=== PATIENT | female | born 1945 | race Caucasian/White ===

== ENCOUNTER 2020-03-05 06:43 | Emergency (ER) | payer MEDICARE, SELFPAY ==
[2020-03-05] VITALS (43 sets, daily range): BP systolic 76–127; BP diastolic 40–64; PULSE 56–98; RESP 11–19; TEMP 36.6; O2SAT 89–100
--- NOTE | 2020-03-05 07:06 | DI.CT_ITS ---
EXAM: CT HEAD CERV SPINE FACIAL WO CLINICAL HISTORY: fall, syncope. TECHNIQUE: Imaging Protocol: Axial computed tomography images with coronal and sagittal reformatted images were created and reviewed COMPARISON: No exams were available for comparison FINDINGS: CT Head: Ventricles and Extra axial spaces: Normal in size and morphology for the patient's age. Hemorrhage: None. Cerebral parenchyma: Normal. Midline shift: None. Brainstem/Cerebellum: Normal. Calvarium: Normal. Visualized Paranasal sinuses/Mastoids: Small mucous retention cyst Left maxillary sinus. Soft Tissues: Unremarkable. Mildly displaced nasal fractures. CT Cervical Spine: Bones: No acute fracture or subluxation. Degenerative disc changes and facet degenerative changes. N ormal alignment. Soft Tissues: Unremarkable. Lung Apices: Clear. CT Maxillofacial: Orbits: Intact. Mandible: Intact. Nasal bones: Mildly displaced nasal fractures. Sinuses: No fracture. Small mucous retention cyst Left maxillary sinus. IMPRESSION: 1. No acute intracranial process. 2. No acute fracture or subluxation in the cervical spine. 3. Mildly displaced nasal fractures. RADIATION DOSE DELIVERED: 1,905.53mGy.cm Total DLP DATA REPOSITORY: All CT scans at this facility are submitted to the National Radiology Data Registry (NRDR) Dose Index Registry (DIR) with the [employer] (A[employer]). RADIATION OPTIMIZATION: All CT scans at this facility use at least one of these dose optimization te chniques: automated exposure control; mA and/or kV adjustment per patient size (includes targeted exa ms where dose is matched to clinical indication); or iterative reconstruction.
[2020-03-05] MEDS: Normal Saline 1,000 ML 1000 ML IV (07:20)
[2020-03-05 07:22] LABS: Abs Immature Grans 0.01 k/cumm (0.0-0.09); Absolute Basophil Count 0.02 k/cumm (0.0-0.2); Absolute Eosinophil Count 0.05 k/cumm (0.0-0.7); Absolute Lymphocyte Count 1.03 k/cumm (1.2-3.4); Absolute Monocyte Count 0.73 k/cumm (0.11-0.7); Absolute Neutrophil Count 8.15 k/cumm (1.2-6.7); Basophils % 0.2; Eosinophils % 0.5; HCT 44.4 % (36.0-46.0); HGB 15.2 g/dL (12.0-15.5); Immature Grans % 0.1 %; Lymphocytes % 10.3; Mean Corp. HGB Concentration 34.2 g/dL (32.0-36.0); Mean Corpuscular Hemoglobin 31.1 pg (27.0-33.0); Mean Platelet Volume 9.2 fL (8.0-11.0); Monocytes % 7.3; Neutrophils % 81.6; Platelet Count 270 x1000/uL (130-400); RBC 4.88 m/cumm (4.00-5.20); RBC Distribution Width 12.8 % (11.7-14.6); White Blood Cell Count 9.99 k/cumm (4.4-10.8)
--- NOTE | 2020-03-05 07:23 | ED.GENADUL_ITS ---
Discharge Plan Disposition Patient Disposition: HOME Condition: Stable Discharge Details Chief Complaint: Dizzy/Sync Clinical Impression: Syncope and collapse, Nasal bone fracture, Contusion of hand Primary Care Provider: Irene Banegas ED Provider: Suze Dunn Home Meds and New Rx's Prescriptions: No Action No Known Home Meds RF: 0 Discharge Instructions Instructions: Nasal Fracture (ED), Syncope (ED), Head Injury (ED), Contusion in Adults (ED) Additional Instructions: Drink plenty of fluids and get plenty of rest. Alternate tylenol and motrin as needed and directed for pain. Apply ice to the affected area several times daily for 20 minutes at a time. You will receive a call from care management regarding a follow-up appointment with the ear nose and throat doctor. Call your primary care doctor on Saturday to schedule a follow-up appointment for reevaluation and for referral for outpatient cardiac exercise physiologist to rule out a possible abnormal heart rhythm. Return immediately to the emergency department with any worsening or new concerning symptoms. Referrals: Rush Freed MD [ [facility] ST[facility]FF PHYSICIAN] - Discharge Data Discharge Date/Time-TO BE ENTERED AT DEPARTURE: 03/05/20 13:20 Discharge Physician: Suze Dunn Medical Decision Making <Nathan Monte DO - Last Filed: 03/05/20 07:34> 74-year-old female with no significant past medical history who recently just moved back here from the [facility] for evaluation of syncope. Patient states that since she recently moved she has not been eating her normal healthy non-GMO\, organic foods. She states that these less healthy foods that she has been eating over the last day or so is made her feel very poorly. She has felt nauseous, but has had no vomiting or diarrhea. She states that she often gets extremely lightheaded whenever she gets nauseous, and early this morning when she awoke she felt nauseous, got up to go to the bathroom and passed out. She hit her nose and head. She does not recall the event. Currently she does admit to some mild soreness in her upper extremities but she denies any significant pain. She admits to pain in her nose, but denies any significant head or neck pain. She denies any vision changes, numbness but does describe some tingling in her arms bilaterally. She denies any history of cardiac disease or dysrhythmia. She denies any blood thinner use. She does often take some natural supplements, but she denies any medications at this time. No other complaints at this time. Physical exam demonstrates notable bruising over the nose, no nasal septal hematoma. Neurologic exam benign. Although the patient describes some soreness in the arms and anterior chest there is no significant reproducible tenderness. Patient would like to hold off on any x-rays and states that she does not feel anything is broken there. However because of her syncope, as well as certain notably bruised nose, I do feel that CT head neck and face is indicated. We will get these, perform basic cardiology work-up gently rehydrate, monitor closely and reassess. Patient will be signed out to my colleague Dr. Suze Dunn for reassessment, and reevaluation after labs and imaging have returned. EKG 6: 51 Rate 83, intervals normal, sinus rhythm, no significant ST elevations or depressions, no evidence of STEMI. <Suze Dunn, - Last Filed: 03/06/20 09:10> 0800 --please see Dr. Monte's note for initial presentation, exam and plan. Case endorsed to follow-up on CT imaging and final disposition. CT notes minimally displaced nasal bone fracture but no other acute findings. Patient reassessed -she is complaining of continued hand pain. She has pain with movement of her hands and with even light touch. There is no evidence of trauma, bony deformity, erythema, ecchymosis. She states she feels she fell onto both of her hands when she fell this morning. I do not see an indication for x-rays at this time. We will give a dose of Toradol. She is also complaining of some nausea. Will give a dose of Pepcid and Zofran. Will obtain a second troponin and EKG as well as chest x-ray. Will attempt p.o. challenge. Repeat EKG rate of 61, sinus no acute ischemic change. Repeat troponin negative. Chest x-ray negative. 1045 -- pt reassessed - she is still c/o b/l hand pain, no relief with toradol. DATA SUPPORT ANALYST states she was a little bit wobbly walking back from the bathroom. Will give a tray of food, obtain hand xrays, dose of morphine and reassess. Patient states she would prefer to go home if possible. 1230 -- pt reassessed - she refused morphine. Bilateral hand x-rays noted questionable distal radius fracture but this was ruled out on R wrist xray. Patient had negative bilateral snuffbox tenderness. She was requesting to go home. She was able to eat and drink. She was able to ambulate without dizziness. Advised to follow up with the primary care doctor for re-evaluation. Usual and customary return precautions given prior to discharge. Medical Records Medical records reviewed: Yes I reviewed the patient's medical records. Imaging Data Radiologic Study: Radiologist's impression: CT Head Without Contrast Exam date and time: 03/05/2020 7:15 AM Age: 74 years old Clinical indication: Injury or trauma; Fall; Initial encounter; Blunt trauma (contusions or hematomas); Nose TECHNIQUE: Imaging protocol: Computed tomography of the head without contrast. COMPARISON: No relevant prior studies available. FINDINGS: Brain: No hemorrhage. There is mild diffuse heterogeneity of the white matter attenuation, consistent with chronic white matter ischemic changes. No mass effect. Basal ganglia cacifications. There is mild generalized brain parenchymal volume loss. Ventricles: No ventriculomegaly. Bones/joints: Minimally displaced nasal bone fracture. No calvarial fracture. Sinuses: Left maxillary mucous retention cyst versus polyp. Mastoid air cells: Visualized mastoid air cells are well aerated. Vasculature: Atherosclerotic calcifications of the intracranial arteries. Soft tissues: Unremarkable. IMPRESSION: 1. No acute intracranial findings. 2. Minimally displaced nasal bone fracture. 3. Left maxillary mucous retention cyst versus polyp. 4. Chronic and senescent changes as above. CT Maxillofacial Without Contrast Exam date and time: 03/05/2020 7:15 AM Age: 74 years old Clinical indication: Injury or trauma; Fall; Initial encounter; Blunt trauma (contusions or hematomas); Nose TECHNIQUE: Imaging protocol: Computed tomography images of the face without contrast. COMPARISON: No relevant prior studies available. FINDINGS: Orbits: Orbits are normal. Globes are unremarkable. Bones/joints: Minimally displaced nasal bone fracture. Sinuses: Left mucous retention cyst versus polyp. No air-fluid levels. Dental: Metallic dental artifact. Soft tissues: Unremarkable. IMPRESSION: Minimally displaced nasal bone fracture. CT Cervical Spine Without Contrast Exam date and time: 03/05/2020 7:15 AM Age: 74 years old Clinical indication: Injury or trauma; Fall; Initial encounter; Blunt trauma (contusions or hematomas); Nose TECHNIQUE: Imaging protocol: Computed tomography images of the cervical spine without contrast. COMPARISON: No relevant prior studies available. FINDINGS: Vertebrae: No acute fracture. Normal alignment. Discs/Spinal canal/Neural foramina: Multilevel spondylosis. Most pronounced at C3-C4, C4-C5 and C6-C7 with mild bilateral neural foraminal narrowing and mild spinal canal narrowing. Soft tissues: Unremarkable. Lungs: Pleuroparenchymal scarring of the lung apices. IMPRESSION: 1. No acute findings. 2. Mild to moderate spondylosis. XR Left Hand Exam date and time: 03/05/2020 11:13 AM Age: 74 years old Clinical indication: Other: S/P fall, R/O acute disease TECHNIQUE: Imaging protocol: XR Left hand. Views: 3 or more views. COMPARISON: No relevant prior studies available. FINDINGS: Bones/joints: There is no evidence of acute fracture. There is no evidence of joint malalignment or dislocation. Osteopenia. Degenerative changes of the distal interphalangeal joints. Soft tissues: Normal. IMPRESSION: No acute osseous findings. Osteopenia. Osteoarthritis. XR Right Hand Exam date and time: 03/05/2020 11:10 AM Age: 74 years old Clinical indication: Pain; Hand; Bilateral TECHNIQUE: Imaging protocol: XR Right hand. Views: 3 or more views. COMPARISON: No relevant prior studies available. FINDINGS: Bones/joints: Osteopenia. Mild degenerative changes of the interphalangeal joints. There is slight dorsal angulation of the radius and volar cortical irregularity (step-off) which could represent a minimally displaced distal radius fracture. Sequelae of prior trauma at the ulnar styloid. Soft tissues: A Band-Aid appears to be over the distal aspect of the 2nd digit. Possible small amount of soft tissue thickening at the distal 2nd digit. IMPRESSION: There is slight dorsal angulation of the radius with volar cortical irregularity on lateral radiograph which could represent a minimally displaced distal radius fracture. Recommend correlation to history and point tenderness at this area. Recommend dedicated wrist radiographs. Osteopenia. XR Right Wrist Exam date and time: 03/05/2020 12:05 PM Age: 74 years old Clinical indication: Pain; Wrist; Right; Additional info: Follow up imaging for wrist per radiologist, FX ulna 2 years ago TECHNIQUE: Imaging protocol: XR Right wrist. Views: 3 or more views. COMPARISON: CR XR HAND RT COMPLETE 03/05/2020 11:10 AM FINDINGS: Bones/joints: Osteopenia. No displaced fracture lucency. Smooth cortical regularity and dorsal angulation of the distal radius likely represents sequelae of prior/old trauma. Sequelae of prior trauma the ulnar styloid. Soft tissues: Normal. IMPRESSION: 1. No displaced fracture lucency. If continued point tenderness, recommend conservative management. 2. Likely sequelae of prior trauma at the distal radius and ulnar styloid. Lab Data Lab results reviewed: Yes I reviewed the patient's lab results. Labs: Laboratory Tests Range/Units 03/05/20 03/05/20 03/05/20 07:16 07:16 07:16 WBC (4.4-10.8) k/cumm 9.99 RBC (4.00-5.20) m/cumm 4.88 Hgb (12.0-15.5) g/dL 15.2 Hct (36.0-46.0) % 44.4 MCV (80-95) fL 91.0 MCH (27.0-33.0) pg 31.1 MCHC (32.0-36.0) g/dL 34.2 RDW (11.7-14.6) % 12.8 Plt Count (130-400) x1000/uL 270 MPV (8.0-11.0) fL 9.2 Immature Gran % % 0.1 Neutrophils % 81.6 Lymphocytes % 10.3 Monocytes % 7.3 Eosinophils % 0.5 Basophils % 0.2 Absolute Neutrophils (1.2-6.7) k/cumm 8.15 H Absolute Lymphocytes (1.2-3.4) k/cumm 1.03 L Absolute Monocytes (0.11-0.7) k/cumm 0.73 H Absolute Eosinophils (0.0-0.7) k/cumm 0.05 Absolute Basophils (0.0-0.2) k/cumm 0.02 PT (9.3-11.0) sec 9.9 INR (0.9-1.1) 1.0 APTT (21.0-31.4) sec 22.8 Sodium (136-145) mmol/L 138 Potassium (3.5-5.1) mmol/L 3.7 Chloride (98-107) mmol/L 102 Carbon Dioxide (21.0-32.0) mmol/L 28.6 Anion Gap (3-11) mmol/L 7.4 BUN (7-18) mg/dL 22 H Creatinine (0.55-1.02) mg/dL 0.73 Estimated GFR/1.73 m2 (mL/min/1.73m2) >= 60.00 Glucose (74-106) mg/dL 119 H Calcium (8.5-10.1) mg/dL 9.1 Total Bilirubin (0.2-1.0) mg/dL 0.3 AST (15-37) U/L 24 ALT (14-59) U/L 27 Alkaline Phosphatase (46-116) U/L 73 Troponin I (<0.06) ng/mL < 0.05 Total Protein (6.4-8.2) g/dL 7.1 Albumin (3.4-5.0) g/dL 3.9 Lipase (73-393) U/L 112 TSH (0.36-3.74) uIU/mL 3.44 Urine Color (Yellow) Urine Clarity (Clear) Urine pH (5-8) Ur Specific [place] (1.005-1.025) Urine Protein (Negative) mg/dL Urine Ketones (Negative) mg/dL Urine Blood (Negative) Urine Nitrite (Negative) Urine Bilirubin (Negative) Urine Urobilinogen (Up TO 0.2) EU/dL Ur Leukocyte Esterase (Negative) Urine Glucose (Negative) mg/dL Range/Units 03/05/20 03/05/20 08:00 09:15 WBC (4.4-10.8) k/cumm RBC (4.00-5.20) m/cumm Hgb (12.0-15.5) g/dL Hct (36.0-46.0) % MCV (80-95) fL MCH (27.0-33.0) pg MCHC (32.0-36.0) g/dL RDW (11.7-14.6) % Plt Count (130-400) x1000/uL MPV (8.0-11.0) fL Immature Gran % % Neutrophils % Lymphocytes % Monocytes % Eosinophils % Basophils % Absolute Neutrophils (1.2-6.7) k/cumm Absolute Lymphocytes (1.2-3.4) k/cumm Absolute Monocytes (0.11-0.7) k/cumm Absolute Eosinophils (0.0-0.7) k/cumm Absolute Basophils (0.0-0.2) k/cumm PT (9.3-11.0) sec INR (0.9-1.1) APTT (21.0-31.4) sec Sodium (136-145) mmol/L Potassium (3.5-5.1) mmol/L Chloride (98-107) mmol/L Carbon Dioxide (21.0-32.0) mmol/L Anion Gap (3-11) mmol/L BUN (7-18) mg/dL Creatinine (0.55-1.02) mg/dL Estimated GFR/1.73 m2 (mL/min/1.73m2) Glucose (74-106) mg/dL Calcium (8.5-10.1) mg/dL Total Bilirubin (0.2-1.0) mg/dL AST (15-37) U/L ALT (14-59) U/L Alkaline Phosphatase (46-116) U/L Troponin I (<0.06) ng/mL < 0.05 Total Protein (6.4-8.2) g/dL Albumin (3.4-5.0) g/dL Lipase (73-393) U/L TSH (0.36-3.74) uIU/mL Urine Color (Yellow) Yellow Urine Clarity (Clear) Clear Urine pH (5-8) 7.0 Ur Specific [place] (1.005-1.025) 1.020 Urine Protein (Negative) mg/dL Negative Urine Ketones (Negative) mg/dL Trace H Urine Blood (Negative) Negative Urine Nitrite (Negative) Negative Urine Bilirubin (Negative) Negative Urine Urobilinogen (Up TO 0.2) EU/dL 0.2 Ur Leukocyte Esterase (Negative) Negative Urine Glucose (Negative) mg/dL Negative ECG Data Attestation: I personally reviewed and interpreted this ECG (s) as follows: Interpretation: #1 --Rate of 83, atrial, P waves inverted in most leads. No acute ST elevation or depression. NJ 150. QTc 414. QRS 84. #2 --rate of 61, sinus, no acute ST elevation or depression. NJ 160. QTc 399. QRS 82. HPI <Nathan Monte DO - Last Filed: 03/05/20 07:34> General Date/Time Provider Initiated Documentation: 03/05/20 07:04 . HPI Narrative: 74-year-old female with no significant past medical history who recently just moved back here from the [facility] for evaluation of syncope. Patient states that since she recently moved she has not been eating her normal healthy non-GMO\, organic foods. She states that these less healthy foods that she has been eating over the last day or so is made her feel very poorly. She has felt nauseous, but has had no vomiting or diarrhea. She states that she often gets extremely lightheaded whenever she gets nauseous, and early this morning when she awoke she felt nauseous, got up to go to the bathroom and passed out. She hit her nose and head. She does not recall the event. Currently she does admit to some mild soreness in her upper extremities but she denies any significant pain. She admits to pain in her nose, but denies any significant head or neck pain. She denies any vision changes, numbness but does describe some tingling in her arms bilaterally. She denies any history of cardiac disease or dysrhythmia. She denies any blood thinner use. She does often take some natural supplements, but she denies any medications at this time. No other complaints at this time. Related Data Home Medications Medication Instructions Recorded Confirmed Unknown [No Known Home Meds] 03/05/20 03/05/20 General Stated Complaint: Dizzy/Sync HARDY: 2 Review of Systems <Nathan Monte DO - Last Filed: 03/05/20 07:34> All systems reviewed & are unremarkable except as noted in HPI and below PFSH <Nathan Motne DO - Last Filed: 03/05/20 07:34> Social History Smoking/Tobacco Use Status: Never Alcohol Intake: never Substance use type: does not use Do you feel safe at home: Yes Do you feel safe in your relationship?: Yes Exam <Nathan Monte DO - Last Filed: 03/05/20 07:34> Narrative Exam Narrative: 1.Const: Well-nourished, Well-developed, appearing stated age 2.Eyes: PERRL, no conjunctival injection, and symmetrical lids. 3.ENT: Notable bruising over nose. Moist MM. Neck: Symmetric, trachea midline, No thyromegaly. There is no evidence of raccoon eyes, krishna sign, CSF rhinorrhea, mastoid tenderness, cranial crepitus, hemotympanum, exophthalmos, or hyphema. Patient demonstrates intact dentition with no signs of tooth avulsion or fracture, no signs of jaw deformity, no evidence of a LeFort's fracture, with an intact palate, nose and orbital region. There is no evidence of a nasal septal hematoma. No proptosis. Jaw closes symmetrically. Airway is clear. 4.CVS: Regular rate and rhythm, Normal s1 and s2. No murmurs, carotid bruits, rubs, or gallops. Radial pulses 2+ bilaterally and symmetric. Dorsalis pedis pulses 2+ bilaterally and symmetric. 2+ capillary refill. No evidence of distant heart sounds. No extremity edema. No evidence of gross hemorrhage. 5.RESP: Airway clear, no obstructions. No abrasions or ecchymosis. Chest movement symmetric with respirations. No chest wall tenderness. Trachea midline. No crepitus. No step offs. No paradoxical movements. Lungs are clear to auscultation bilaterally. No rales, rhonchi, wheezing or stridor. Breath sound symmetric. No Sucking chest wounds. No clinical evidence of significant chest trauma. 6.GI: Soft, nondistended, nontender. Bowel tones normoactive. No masses or organomegaly. Note no pain at McBurney's point, negative Pan sign. No ecchymosis or abrasions. No periumbilical ecchymosis or seatbelt sign. No flank or CVA tenderness. No clinical signs of significant trauma. 7.MSK: No gross deformities or discolorations or lesions. Tolerates full range of motion of extremities without tenderness. All compartments of upper and lower extremities are soft with no tenderness. Vascular exam demonstrates brisk capillary refill and intact pulses in all extremities. Pelvic exam demonstrates a stable pelvis, nontender to lateral compression and palpation of symphysis pubis. No clinical evidence of significant musculoskeletal trauma. No midline tenderness to palpation over the CTLS spine. Normal ROM in flexion, extension, side bend, and rotation. Patient has +5 out of 5 strength in the lower extremities in dorsiflexion and plantarflexion, knee flexion and extension, hip flexion and extension. Normal strength for dorsiflexion and plantar flexion of the great toe bilaterally. There is +2 over 2 dorsalis pedis pulses bilater ally. There is normal sensation to the skin with light touch at the foot, knee, and hip. Normal saddle sensation. Good sensation over the deep sural nerve area bilaterally. Rectal exam deferred. Reflexes are +2 over 4 in the patellar reflex bilaterally. +5 out of 5 strength in the medial, ulnar, radial nerve distribution bilaterally in the hands as well as intact light touch sensation to these dermatomes on the hands 8.Skin: Warm, Dry. No rashes or lesions. 9.Neuro: All 6 cardinal planes of vision are fully intact. No evidence of rotatory or vertical nystagmus. The patient demonstrated a normal [id number], good dexterity. There was no evidence of dysdiadochokinesia. Patient was able to ambulate without difficulty. There was no wide-based gait. Romberg testing was normal. [id number] testing was normal. Sensation was intact bilaterally as well as muscle strength bilaterally for all extremities. Patient was able to verbalize butter cup with no slurring, or miss pronunciat ion. 10.Psych: (AAO) x3. Appropriate mood and affect Course <Nathan Monte, - Last Filed: 03/05/20 07:34> Vital Signs Vital signs: Vital Signs Temperature 36.6 C 03/05/20 06:42 Pulse 84 03/05/20 06:42 Respiratory Rate 17 03/05/20 06:42 Blood Pressure 127/56 L 03/05/20 06:42 Pulse Oximetry 97 03/05/20 06:42 Temperature 36.6 C 03/05/20 06:42 Temperature Source Temporal Artery Scan 03/05/20 06:42 Pulse 84 03/05/20 06:42 Respiratory Rate 17 03/05/20 06:42 Respiratory Effort 03/05/20 06:52 Blood Pressure 127/56 L 03/05/20 06:42 Blood Pressure Position Sitting 03/05/20 06:42 Pulse Oximetry 97 03/05/20 06:42 Oxygen Delivery Method Room Air 03/05/20 06:42 Oxygen Flow Rate 0 03/05/20 06:42 Pain Level 9 03/05/20 06:42 Sign Out <Nathan Monte DO - Last Filed: 03/05/20 07:34> Sign Out Data: Sign Out Comment: Pending labs, CT scan, fluids and reassessment. Last updated by Nathan Monte DO at 03/05/20 07:46
[2020-03-05] MEDS: ACETAMINOPHEN 1,000 MG/100 ML BTL 400 MG IVPB (07:25)
[2020-03-05 07:36] LABS: PTT Activated 22.8 sec (21.0-31.4); Prothrombin Time 9.9 sec (9.3-11.0)
[2020-03-05 07:43] LABS: ALT 27 U/L (14-59); AST 24 U/L (15-37); Albumin 3.9 g/dL (3.4-5.0); Alkaline Phosphatase 73 U/L (46-116); Anion Gap 7.4 mmol/L (3-11); BUN 22 mg/dL (7-18); Bilirubin, Total 0.3 mg/dL (0.2-1.0); CO2 28.6 mmol/L (21.0-32.0); CREATININE 0.73 mg/dL (0.55-1.02); Calcium 9.1 mg/dL (8.5-10.1); Chloride 102 mmol/L (98-107); Glucose 119 mg/dL (74-106); Lipase 112 U/L (73-393); Potassium 3.7 mmol/L (3.5-5.1); Sodium 138 mmol/L (136-145); TSH (W/Ref FT4) 3.44 uIU/mL (0.36-3.74); Total Protein 7.1 g/dL (6.4-8.2)
[2020-03-05 07:46] LABS: Troponin I < 0.05 ng/mL (<0.06)
[2020-03-05 08:08] LABS: Bilirubin Negative (Negative); Blood Negative (Negative); Clarity Clear (Clear); Glucose Negative (Negative); Ketones Trace mg/dL (Negative); Leukocyte Esterase Negative (Negative); Nitrite Negative (Negative); Urobilinogen 0.2 EU/dL (Up TO 0.2)
--- NOTE | 2020-03-05 08:28 | DI.VRAD_ITS ---
PROCEDURE INFORMATION: Exam: CT Head Without Contrast Exam date and time: 03/05/2020 7:15 AM Age: 74 years old Clinical indication: Injury or trauma; Fall; Initial encounter; Blunt trauma (contusions or hematomas); Nose TECHNIQUE: Imaging protocol: Computed tomography of the head without contrast. COMPARISON: No relevant prior studies available. FINDINGS: Brain: No hemorrhage. There is mild diffuse heterogeneity of the white matter attenuation, consistent with chronic white matter ischemic changes. No mass effect. Basal ganglia cacifications. There is mild generalized brain parenchymal volume loss. Ventricles: No ventriculomegaly. Bones/joints: Minimally displaced nasal bone fracture. No calvarial fracture. Sinuses: Left maxillary mucous retention cyst versus polyp. Mastoid air cells: Visualized mastoid air cells are well aerated. Vasculature: Atherosclerotic calcifications of the intracranial arteries. Soft tissues: Unremarkable. IMPRESSION: 1. No acute intracranial findings. 2. Minimally displaced nasal bone fracture. 3. Left maxillary mucous retention cyst versus polyp. 4. Chronic and senescent changes as above. PROCEDURE INFORMATION: Exam: CT Maxillofacial Without Contrast Exam date and time: 03/05/2020 7:15 AM Age: 74 years old Clinical indication: Injury or trauma; Fall; Initial encounter; Blunt trauma (contusions or hematomas); Nose TECHNIQUE: Imaging protocol: Computed tomography images of the face without contrast. COMPARISON: No relevant prior studies available. FINDINGS: Orbits: Orbits are normal. Globes are unremarkable. Bones/joints: Minimally displaced nasal bone fracture. Sinuses: Left mucous retention cyst versus polyp. No air-fluid levels. Dental: Metallic dental artifact. Soft tissues: Unremarkable. IMPRESSION: Minimally displaced nasal bone fracture. PROCEDURE INFORMATION: Exam: CT Cervical Spine Without Contrast Exam date and time: 03/05/2020 7:15 AM Age: 74 years old Clinical indication: Injury or trauma; Fall; Initial encounter; Blunt trauma (contusions or hematomas); Nose TECHNIQUE: Imaging protocol: Computed tomography images of the cervical spine without contrast. COMPARISON: No relevant prior studies available. FINDINGS: Vertebrae: No acute fracture. Normal alignment. Discs/Spinal canal/Neural foramina: Multilevel spondylosis. Most pronounced at C3-C4, C4-C5 and C6-C7 with mild bilateral neural foraminal narrowing and mild spinal canal narrowing. Soft tissues: Unremarkable. Lungs: Pleuroparenchymal scarring of the lung apices. IMPRESSION: 1. No acute findings. 2. Mild to moderate spondylosis. Dictated and Authenticated by: Jhoan Galeano MD. Ordering:NATY Evans MD
[2020-03-05] MEDS: Ketorolac 30 MG/ML VIAL IVP (08:55)
--- NOTE | 2020-03-05 08:56 | DI.RAD_ITS ---
EXAM: XR PORTABLE CHEST AP CLINICAL HISTORY: syncope, r/o acute disease TECHNIQUE: 2D digital imaging was performed. COMPARISON: No exams were available for comparison FINDINGS: LUNGS: Mild chronic fibrotic changes. No pleural abnormality seen. HEART: Normal size. Calcification at the aortic arch. MEDIASTINUM: Normal. OTHER FINDINGS: EKG leads IMPRESSION: No acute pulmonary findings. DATA REPOSITORY: RADIATION DOSE DELIVERED:
[2020-03-05] MEDS: FAMOTIDINE 20 MG/50 ML BAG 200 MG IVPB (09:03)
[2020-03-05] MEDS: Ondansetron 4 MG/2 ML VIAL IVP (09:20)
--- NOTE | 2020-03-05 09:37 | DI.VRAD_ITS ---
PROCEDURE INFORMATION: Exam: XR Chest, 1 View Exam date and time: 03/05/2020 9:06 AM Age: 74 years old Clinical indication: Other: Syncope, R/O acute disease TECHNIQUE: Imaging protocol: XR of the chest Views: 1 view. COMPARISON: No relevant prior studies available. FINDINGS: Lungs: No consolidation. Pleural space: No pleural effusion. No pneumothorax. Heart/Mediastinum: No cardiomegaly. Vasculature: Calcified aortic arch. Bones/joints: Unremarkable. IMPRESSION: No acute findings. Dictated and Authenticated by: Jhoan Galeano MD. Ordering:EBENEZER Arciniega MD
[2020-03-05 09:40] LABS: Troponin I < 0.05 ng/mL (<0.06)
--- NOTE | 2020-03-05 10:45 | DI.RAD_ITS ---
EXAM: XR HAND RT COMPLETE CLINICAL HISTORY: s/p fall, r/o acute disease. TECHNIQUE: 2D digital imaging was performed. COMPARISON: No exams were available for comparison FINDINGS: BONES: No acute fracture is present. No bony destructive lesion is seen. There is a question of an ol d fracture deformity of the distal radius and ulnar styloid. JOINTS: No dislocation present. Mild degenerative changes. SOFT TISSUE: Normal. IMPRESSION: No acute abnormality.. DATA REPOSITORY: RADIATION DOSE DELIVERED:
--- NOTE | 2020-03-05 10:45 | DI.RAD_ITS ---
EXAM: XR HAND LT COMPLETE CLINICAL HISTORY: s/p fall, r/o acute fracture. TECHNIQUE: 2D digital imaging was performed. COMPARISON: CR,XR XR HAND RT COMPLETE from 03/05/2020 FINDINGS: BONES: No acute fracture is present. No bony destructive lesion is seen. JOINTS: No dislocation present. There are degenerative changes greatest at the distal interphalangeal joint of the little finger. SOFT TISSUE: Normal. IMPRESSION: Degenerative changes. No acute abnormality. DATA REPOSITORY: RADIATION DOSE DELIVERED:
--- NOTE | 2020-03-05 11:36 | DI.VRAD_ITS ---
PROCEDURE INFORMATION: Exam: XR Right Hand Exam date and time: 03/05/2020 11:10 AM Age: 74 years old Clinical indication: Pain; Hand; Bilateral TECHNIQUE: Imaging protocol: XR Right hand. Views: 3 or more views. COMPARISON: No relevant prior studies available. FINDINGS: Bones/joints: Osteopenia. Mild degenerative changes of the interphalangeal joints. There is slight dorsal angulation of the radius and volar cortical irregularity (step-off) which could represent a minimally displaced distal radius fracture. Sequelae of prior trauma at the ulnar styloid. Soft tissues: A Band-Aid appears to be over the distal aspect of the 2nd digit. Possible small amount of soft tissue thickening at the distal 2nd digit. IMPRESSION: There is slight dorsal angulation of the radius with volar cortical irregularity on lateral radiograph which could represent a minimally displaced distal radius fracture. Recommend correlation to history and point tenderness at this area. Recommend dedicated wrist radiographs. Osteopenia. Dictated and Authenticated by: Jhoan Galeano MD. Ordering:EBENEZER Arciniega MD
--- NOTE | 2020-03-05 11:39 | DI.VRAD_ITS ---
PROCEDURE INFORMATION: Exam: XR Left Hand Exam date and time: 03/05/2020 11:13 AM Age: 74 years old Clinical indication: Other: S/P fall, R/O acute disease TECHNIQUE: Imaging protocol: XR Left hand. Views: 3 or more views. COMPARISON: No relevant prior studies available. FINDINGS: Bones/joints: There is no evidence of acute fracture. There is no evidence of joint malalignment or dislocation. Osteopenia. Degenerative changes of the distal interphalangeal joints. Soft tissues: Normal. IMPRESSION: No acute osseous findings. Osteopenia. Osteoarthritis. Dictated and Authenticated by: Jhoan Galeano MD. Ordering:EBENEZER Arciniega MD
--- NOTE | 2020-03-05 11:45 | DI.RAD_ITS ---
EXAM: XR WRIST RT COMPLETE CLINICAL HISTORY: r/o distal radius fracture. TECHNIQUE: 2D digital imaging was performed. COMPARISON: No exams were available for comparison FINDINGS: BONES: No acute fracture is present. No bony destructive lesion is seen. There is deformity of the di stal radius and ulnar styloid consistent with old healed fractures. JOINTS: The carpal bones are normally aligned. There are mild degenerative changes. SOFT TISSUE: Normal. IMPRESSION: Old fracture deformities. No acute abnormality.. DATA REPOSITORY: RADIATION DOSE DELIVERED:
--- NOTE | 2020-03-05 12:25 | DI.VRAD_ITS ---
PROCEDURE INFORMATION: Exam: XR Right Wrist Exam date and time: 03/05/2020 12:05 PM Age: 74 years old Clinical indication: Pain; Wrist; Right; Additional info: Follow up imaging for wrist per radiologist, FX ulna 2 years ago TECHNIQUE: Imaging protocol: XR Right wrist. Views: 3 or more views. COMPARISON: CR XR HAND RT COMPLETE 03/05/2020 11:10 AM FINDINGS: Bones/joints: Osteopenia. No displaced fracture lucency. Smooth cortical regularity and dorsal angulation of the distal radius likely represents sequelae of prior/old trauma. Sequelae of prior trauma the ulnar styloid. Soft tissues: Normal. IMPRESSION: 1. No displaced fracture lucency. If continued point tenderness, recommend conservative management. 2. Likely sequelae of prior trauma at the distal radius and ulnar styloid. Dictated and Authenticated by: Jhoan Galeano MD. Ordering:EBENEZER Arciniega MD
--- NOTE | 2020-03-07 09:08 | NUR.NOTE ---
Referral faxed to ENT.Nursing Note:
== END 2020-03-05 13:20 | disposition home or self-care (01) ==
PROVIDERS: Student in an Organized Health Care Education/Training Program; Emergency Provider Physician Assistant
DX: S02.2XXA Fracture of nasal bones, initial encounter for closed fracture (principal); S09.90XA Unspecified injury of head, initial encounter; S60.221A Contusion of right hand, initial encounter; S60.222A Contusion of left hand, initial encounter; R20.2 Paresthesia of skin; R55 Syncope and collapse; W19.XXXA Unspecified fall, initial encounter
CPT/HCPCS: 21310; 36415; 80053; 83690; 93005; 96361; 96365; 96375; 99285; 70450; 70486; 71045; 72125; 73110; 73130; 81003; 84443; 84484; 85025; 85610; 85730; 93010; J0131; J1885; J2405

== ENCOUNTER 2021-01-03 10:45 | Emergency (ER) | payer MEDICARE, SELFPAY ==
[2021-01-03] VITALS (35 sets, daily range): BP systolic 125–139; BP diastolic 53–68; PULSE 70–110; RESP 10–38; TEMP 36.6; O2SAT 94–100
--- NOTE | 2021-01-03 10:30 | RT.EKG_ITS ---
APPROVED REPORT Exam: Resting ECG Patient Location: E HR:69 bpm ECG Measurements Heart Rate 69 AXIS MN 177 P 74 QRSd 75 QRS 68 QT 385 T 34 QTc 413 Conclusion Sinus rhythm...normal P axis, V-rate 60- 99
[2021-01-03] MEDS: Normal Saline 1,000 ML 1000 ML IV (11:45)
--- NOTE | 2021-01-03 11:48 | ED.GENADUL_ITS ---
Discharge Plan Disposition Patient Disposition: HOME Condition: Improving Discharge Details Chief Complaint: RespSymp Clinical Impression: Dehydration Primary Care Provider: Irene Banegas ED Provider: Eduar Mariscal Home Meds and New Rx's Prescriptions: No Action No Known Home Meds RF: 0 Discharge Instructions Instructions: Dehydration (ED) Additional Instructions: Home to rest today. Small, frequent sips of fluids to maintain hydration. Return to the emergency department for any acute concerns. We will ask our care management team to arrange a follow-up for you in [facility] for a recheck Medical Decision Making 75-year-old female presents from home. She states that she has been days of feeling generalized weak with chest congestion, worried that she had a Covid exposure at [facility]. She also states she was constipated, took an organic laxative at home which produced large volume watery stool this morning. This made her feel worsening weakness. She has not had syncope, no chest pain, denies headache or fall. She arrives to ER with normal vital signs, reassuring examination. Differential diagnosis includes upper respiratory illness, dehydration, electrolyte abnormality. Patient IV access established, given fluid bolus, referred for screening chest x-ray, Covid swab, laboratory analysis. Urine positive for ketones. Remainder of labs show unremarkable CBC with white count 7, hematocrit 41, platelets 236. Sodium 134, potassium 4.2, chloride 98, bicarb 27, BUN 12, creatinine 0.6. LFTs unremarkable. Chest x-ray without acute findings. After fluids and a meal, patient is improving. Her Covid test is pending. Given the ketones in her description,. Do feel this is mild dehydration. She voiced some concerns over the possible Covid exposure and did become mildly tachycardic while talking. This resolves while at rest. She has not sought routine medical care for some time, but has follow-up with [facility], we will arrange for an outpatient follow-up appointment. She is stable for discharge to home HPI General Mode of arrival: EMS . Date/Time Provider Initiated Documentation: 01/03/21 12:59 . Limitations to Documentation: no limitations . Information obtained by: patient and EMS . History of Present Illness 75 year old F presents to the emergency department with the chief complaint of Congestion of the chest, generalized weakness, loose watery stool , described as mild, Patient reports no radiation. Patient started experiencing this hour(s) and it has been constant. Rest improves symptom(s), Other factors that worsen symptoms (Rising to standing, no syncope) . Patient notes weakness; denies loss of appetite and syncope. Patient did receive the following treatments prior to arrival, none Related Data Home Medications Medication Instructions Recorded Confirmed Unknown [No Known Home Meds] 03/05/20 03/05/20 Allergies Allergy/AdvReac Type Severity Reaction Status Date / Time all abx except PCN AdvReac Nausea Uncoded 01/03/21 10:51 General Stated Complaint: RespSymp HARDY: 2 Review of Systems Narrative: No syncope. No chest pain, no cough or fever. Probable positive Covid exposure. Chest congestion. Was constipated, took a laxative and had large volume loose, watery stool. 8 systems reviewed and otherwise negative [facility] Social History Smoking/Tobacco Use Status: Former Tobacco Use Smoking risk assessment performed?: Yes Alcohol Intake: never Drug use: Never Substance use type: does not use Do you feel safe at home: Yes Do you feel safe in your relationship?: Yes Exam Narrative Exam Narrative: GEN: awake, alert, oriented 3. Pleasant, well groomed, interactive. HEAD: Normocephalic, atraumatic ENT: Mucous membranes dry, oropharynx unremarkable, External ear exam unremarkable EYES: PERRL, EOMI NECK: Full ROM, no FRANCISCO, no menigismus CHEST/RESP: Nontender, clear to auscultation bilateral, no wheeze/rhonchi/rales CARDIOVASCULAR: RRR, no murmur, rub isaiah. 2+ Rad pulse bilateral ABDOMEN: Soft, nontender, no mass. +Bowel sounds EXT: Full ROM, no edema, no rash Neuro: Grossly normal neurologic exam, conversant, interactive. Psych: Speech fluent, thoughts congruent, affect normal Course Vital Signs Vital signs: Vital Signs Temperature 36.6 C 01/03/21 10:42 Pulse 75 01/03/21 10:42 Respiratory Rate 16 01/03/21 10:42 Blood Pressure 134/63 01/03/21 10:42 Pulse Oximetry 97 01/03/21 10:42 Temperature 36.6 C 01/03/21 10:42 Temperature Source Skin 01/03/21 10:42 Pulse 75 01/03/21 10:42 Respiratory Rate 16 01/03/21 10:42 Respiratory Effort Non-Labored 01/03/21 11:04 Blood Pressure 134/63 01/03/21 10:42 Blood Pressure Position Supine 01/03/21 10:42 Pulse Oximetry 97 01/03/21 10:42 Oxygen Delivery Method Room Air 01/03/21 10:42 Oxygen Flow Rate 0 01/03/21 10:42 Pain Level 0 01/03/21 10:42
[2021-01-03 12:14] LABS: Abs Immature Grans 0.03 10^3/uL (0.0-0.06); Absolute Basophil Count 0.04 10^3/uL (0.0-0.2); Absolute Eosinophil Count 0.02 10^3/uL (0.0-0.7); Absolute Lymphocyte Count 0.96 10^3/uL (1.2-3.4); Absolute Monocyte Count 0.54 10^3/uL (0.1-0.8); Absolute Neutrophil Count 5.68 10^3/uL (1.2-6.7); Basophils % 0.6; Eosinophils % 0.3; HCT 41.4 % (36.0-46.0); HGB 14.1 g/dL (11.2-15.7); Immature Grans % 0.4; Lymphocytes % 13.2; MCH 31.2 pg (27.0-33.0); MCHC 34.1 % (32.0-36.0); MCV 91.6 fL (80-95); MPV 9.3 fL (8.0-11.0); Monocytes % 7.4; Neutrophils % 78.1; Nucleated RBC 0 %; Platelet Count 236 10^3/uL (130-400); RBC 4.52 10^6/uL (3.93-5.22); RDW 11.9 % (11.7-14.6); RDW-SD 40.5 fL; WBC 7.27 10^3/uL (4.4-10.8)
[2021-01-03 12:21] LABS: ALT 25 U/L (14-59); AST 17 U/L (15-37); Albumin 3.8 g/dL (3.4-5.0); Alkaline Phosphatase 81 U/L (46-116); Anion Gap 8.3 mmol/L (3-11); BUN 12 mg/dL (7-18); Bilirubin, Total 0.3 mg/dL (0.2-1.0); CO2 27.7 mmol/L (21.0-32.0); CREATININE 0.6 mg/dL (0.55-1.02); Chloride 98 mmol/L (98-107); Glucose 129 mg/dL (74-106); Potassium 4.2 mmol/L (3.5-5.1); Sodium 134 mmol/L (136-145); Total Protein 6.7 g/dL (6.4-8.2)
--- NOTE | 2021-01-03 12:50 | DI.RAD_ITS ---
EXAM: XR PORTABLE CHEST AP CLINICAL HISTORY: congestion, weakness TECHNIQUE: 2D digital imaging was performed. COMPARISON: CR,XR XR PORTABLE CHEST AP from 03/05/2020 FINDINGS: MEDIASTINUM: Normal. HEART: Normal. PULMONARY VASCULATURE: Normal. LUNGS: Clear. PLEURAL SPACE: No pleural effusion or pneumothorax. BONE:Within normal limits for the patient's age. OTHER FINDINGS:Normal. IMPRESSION: No acute pulmonary findings. DATA REPOSITORY: RADIATION DOSE DELIVERED:
[2021-01-03 13:25] LABS: Bilirubin Negative (Negative); Blood Negative (Negative); Clarity Clear (Clear); Glucose Negative (Negative); Ketones 15 mg/dL (Negative); Leukocyte Esterase Negative (Negative); Nitrite Negative (Negative); Urobilinogen 0.2 EU/dL (Up TO 0.2); pH 6.5 (5-8)
--- NOTE | 2021-01-03 14:53 | NUR.NOTE ---
Nursing Note: faxed to [facility] 01/03/21 mg
[2021-01-04 12:26] LABS: COVID-19 RT-PCR UVMMC Result Negative (Negative)
--- NOTE | 2021-01-04 18:27 | NUR.NOTE ---
per pt., she is aware of her negative covid test results.
== END 2021-01-03 15:12 | disposition home or self-care (01) ==
PROVIDERS: Emergency Provider Emergency Medicine; PCP Family Medicine
DX: E86.0 Dehydration (principal); R09.89 Other specified symptoms and signs involving the circulatory and respiratory systems; Z20.822 Contact with and (suspected) exposure to COVID-19
CPT/HCPCS: 80053; 93005; 96360; 99284; U0003; U0005; 71045; 81003; 85025; 93010; 99283

== ENCOUNTER 2023-09-26 20:27 | Outpatient (REF) | payer MEDICARE, SELFPAY ==
--- NOTE | 2023-09-26 14:15 | SKI_PTH ---
PATIENT: Lita Dumont [id number] AGE/SX: 78/F ROOM: RE09/26/[address]: Rico Laws : 1945 BED: DIS: 09/26/2023 SPEC #: [id number] RECD: 09/27/23 12:36 STATUS: EDWIN REQ #: [id number] FREDERIC: 09/26/23 14:[address]: Rico Laws DEPT: Surgical Specimen RECD BY: Renetta Bo ENTERED: 09/27/23 12:37 SP TYPE: SKI OT DR: Caitlin Polk Tissues: 1 - SKIN BIOPSY(SHAVE/PUNCH) Procedures: SKIN LEVEL 4 Comments: [id number]
== END 2023-09-26 20:28 | disposition home or self-care (01) ==
LOC: NCHCN 20:27
PROVIDERS: PCP Family Medicine; Visit Provider Family Medicine
DX: L30.8 Other specified dermatitis (principal)
CPT/HCPCS: 88305